=== PATIENT | female | born 1965 | race Hispanic/Latino ===

== ENCOUNTER 2023-10-26 08:28 | Day surgery (SDC) | payer OTHER ==
[2023-10-26] VITALS (11 sets, daily range): BP systolic 123–151; BP diastolic 64–89; PULSE 62–70; RESP 10–18
[~2023-10-26] VITALS: Ht 157.5 cm; Wt 78.5 kg
[~2023-10-26 08:28] MED LIST: 0.9%NACL 1000ML 1,000 ML IV ONE
[2023-10-26] MEDS ORDERED: LIDOCAINE HCL 1% 20 ML VIAL ONE (11:29)
[2023-10-26] MEDS ORDERED: PROPOFOL 10 MG/ML 20ML VIAL IV ONE (11:29)
== END 2023-10-26 13:20 | disposition home or self-care (01) ==
LOC: ENDO 08:28 → DAH 08:28 → ENDO 13:20
PROVIDERS: ATTEND Internal Medicine Gastroenterology
DX: Z09 Encounter for follow-up examination after completed treatment for conditions other than malignant neoplasm (principal); K57.30 Diverticulosis of large intestine without perforation or abscess without bleeding; K64.1 Second degree hemorrhoids; M19.90 Unspecified osteoarthritis, unspecified site; K21.9 Gastro-esophageal reflux disease without esophagitis; Z98.890 Other specified postprocedural states; Z79.899 Other long term (current) drug therapy; Z86.010 Personal history of colon polyps
CPT/HCPCS: 45378; J7030 ×3; J2704; A4620 ×2; A4215 ×4; A4223 ×2; A7002 ×2; A4222 ×2; A4221 ×2; A4663 ×2; A4216 ×2; A4606 ×2; J3490